=== PATIENT | male | born 1985 | race Caucasian/White ===

== ENCOUNTER 2017-09-04 17:53 | Emergency (ER) | payer OTHER ==
[2017-09-04] MEDS ORDERED: Sodium Chloride 0.9% 1,000 ML IV ONE ×2 (18:24→20:04)
[2017-09-04] MEDS ORDERED: Ondansetron 4 MG/2 ML SDV IVPUSH ONE (18:24)
[2017-09-04] MEDS ORDERED: LORazepam 2 MG/ML MDV IVPUSH ONE (18:24)
[2017-09-04] MEDS ORDERED: Morphine 2 MG/ML Syringe IVPUSH ONE (18:24)
--- NOTE | 2017-09-04 18:52 | EDM.PDOC ---
ED HPI GENERAL MEDICAL PROBLEM - General Chief Complaint: Abdominal Pain Stated Complaint: abdominal pain Time Seen by Provider: 09/04/17 18:00 Source of Information: Reports: Patient History Limitations: Reports: No Limitations - History of Present Illness INITIAL COMMENTS - FREE TEXT/NARRATIVE: History of present illness: 32-year-old male comes in with complaints of flank pain right greater than left indicates that he thinks he has another stone and has history of having kidney stones and states this feels the same Review of systems: As per history of present illness and below otherwise all systems reviewed and negative. Past medical history: As per history of present illness and as reviewed below otherwise noncontributory. Surgical history: As per history of present illness and as reviewed below otherwise noncontributory. Social history: No reported history of drug or alcohol abuse. Family history: As per history of present illness and as reviewed below otherwise noncontributory. Physical exam: HEENT: Atraumatic, normocephalic, pupils reactive, negative for conjunctival pallor or scleral icterus, mucous membranes moist, throat clear, neck supple, nontender, trachea midline. Lungs: Clear to auscultation, breath sounds equal bilaterally, chest nontender. Heart: S1S2, regular, negative for clicks, rubs, or JVD. Abdomen: Soft, nondistended, nontender. Negative for masses or hepatosplenomegaly. Bilateral flank tenderness worse with percussion. Pelvis: Stable nontender. Genitourinary: Deferred. Rectal: Deferred. Extremities: Atraumatic, negative for cords or calf pain. Neurovascular unremarkable. Neuro: Awake, alert, oriented. Cranial nerves II through XII unremarkable. Cerebellum unremarkable. Motor and sensory unremarkable throughout. Exam nonfocal. Diagnostics: [CT without contrast] Therapeutics: [1 L IV fluid, Ativan, Toradol, morphine] Impression: [#1 kidney stone] Plan: [Follow-up with urology] Definitive disposition and diagnosis as appropriate pending reevaluation and review of above. Left Back Pain Score (Numeric/FACES): 10 - Related Data Allergies Allergy/AdvReac Type Severity Reaction Status Date / Time No Known Allergies Allergy Verified 09/04/17 18:11 Home Meds: Home Meds Tamsulosin [Flomax] 0.4 mg PO PCBREAKFAST #7 cap.er 10/27/17 [Rx] Past Medical History HEENT History: Reports: None Cardiovascular History: Reports: None Respiratory History: Reports: None Gastrointestinal History: Reports: None Genitourinary History: Reports: Renal Calculus Musculoskeletal History: Reports: None Neurological History: Reports: None Psychiatric History: Reports: None Endocrine/Metabolic History: Reports: None Hematologic History: Reports: None Immunologic History: Reports: None Oncologic (Cancer) History: Reports: None Dermatologic History: Reports: None - Infectious Disease History Infectious Disease History: Reports: Chicken Pox - Past Surgical History Head Surgeries/Procedures: Reports: None HEENT Surgical History: Reports: None Cardiovascular Surgical History: Reports: None Respiratory Surgical History: Reports: None GI Surgical History: Reports: Hernia, Inguinal Male Surgical History: Reports: None Endocrine Surgical History: Reports: None Neurological Surgical History: Reports: None Musculoskeletal Surgical History: Reports: None Dermatological Surgical History: Reports: None Social & Family History - Family History Family Medical History: Noncontributory - Tobacco Use Smoking Status *Q: Never Smoker Second Hand Smoke Exposure: No - Caffeine Use Caffeine Use: Reports: Soda - Alcohol Use Days Per Week of Alcohol Use: 2 Number of Drinks Per Day: 3 Total Drinks Per Week: 6 - Recreational Drug Use Recreational Drug Use: No Drug Use in Last 12 Months: No ED ROS GENERAL - Review of Systems Review Of Systems: See Below (History of present illness) ED EXAM, GENERAL - Physical Exam Exam: See Below (See history of present illness) Course - Vital Signs Last Recorded V/S: Last Vital Signs Temp 36.2 C 09/04/17 18:12 Pulse 70 09/04/17 19:15 Resp 16 09/04/17 19:15 BP 122/83 09/04/17 19:15 Pulse Ox 100 09/04/17 19:15 - Orders/Labs/Meds Orders: Active Orders 24 hr Category Date Time Status Abdomen Pelvis wo Cont [CT] Stat Exams 09/04/17 18:25 Taken Sodium Chloride 0.9% [Normal Saline] 1,000 ml Med 09/04/17 20:04 Ordered IV STAT Medication Orders Sodium Chloride (Normal Saline) 1,000 mls @ 999 mls/hr IV STAT ONE Stop: 09/04/17 21:04 Last Admin: 09/04/17 20:17 Dose: 999 mls/hr Labs: Laboratory Tests 09/04/17 Range/Units 19:04 Urine Color YELLOW Urine Appearance CLOUDY Urine pH 8.0 (5.0-8.0) Ur Specific [place] 1.015 (1.001-1.035) Urine Protein NEGATIVE (NEGATIVE) mg/dL Urine Glucose (UA) NEGATIVE (NEGATIVE) mg/dL Urine Ketones NEGATIVE (NEGATIVE) mg/dL Urine Occult Blood LARGE H (NEGATIVE) Urine Nitrite NEGATIVE (NEGATIVE) Urine Bilirubin NEGATIVE (NEGATIVE) Urine Urobilinogen 0.2 (<2.0) EU/dL Ur Leukocyte Esterase NEGATIVE (NEGATIVE) Urine RBC 40-50 (0-2/HPF) Urine WBC 0-3 (0-5/HPF) Ur Epithelial Cells RARE (NONE-FEW) Amorphous Sediment MANY (NEGATIVE) Urine Bacteria FEW (NEGATIVE) Meds: Medications Generic Name Dose Route Start Last Admin Trade Name Freq PRN Reason Stop Dose Admin Sodium Chloride 1,000 mls @ 999 mls/hr 09/04/17 20:04 09/04/17 20:17 Normal Saline IV 09/04/17 21:04 999 mls/hr STAT ONE Administration Discontinued Medications Generic Name Dose Route Start Last Admin Trade Name Mjq PRN Reason Stop Dose Admin Hydromorphone HCl 1 mg 09/04/17 20:02 09/04/17 20:11 Dilaudid IVPUSH 09/04/17 20:03 1 mg ONETIME ONE Administration Sodium Chloride 1,000 mls @ 999 mls/hr 09/04/17 18:24 09/04/17 18:30 Normal Saline IV 09/04/17 19:24 999 mls/hr STAT ONE Administration Ketorolac Tromethamine 30 mg 09/04/17 20:02 09/04/17 20:11 Toradol IVPUSH 09/04/17 20:03 30 mg ONETIME ONE Administration Lorazepam 2 mg 09/04/17 18:24 09/04/17 18:31 Ativan IVPUSH 09/04/17 18:25 2 mg ONETIME ONE Administration Morphine Sulfate 2 mg 09/04/17 18:24 09/04/17 18:30 Morphine IVPUSH 09/04/17 18:25 2 mg ONETIME ONE Administration Ondansetron HCl 4 mg 09/04/17 18:24 09/04/17 18:30 Zofran IVPUSH 09/04/17 18:25 4 mg ONETIME ONE Administration Tamsulosin HCl 0.4 mg 09/04/17 20:04 09/04/17 20:11 Flomax PO 09/04/17 20:05 0.4 mg ONETIME ONE Administration Departure - Departure Time of Disposition: 20:35 Disposition: Home, Self-Care 01 Condition: Good Clinical Impression: Renal stone - Discharge Information Instructions: Pain Medicine Instructions, [id number] Forms: ED Department Discharge Additional Instructions: The following information is given to patients seen in the emergency department who are being discharged to home. This information is to outline your options for follow-up care. We provide all patients seen in our emergency department with a follow-up referral. The need for follow-up, as well as the timing and circumstances, are variable depending upon the specifics of your emergency department visit. If you don't have a primary care physician on staff, we will provide you with a referral. We always advise you to contact your personal physician following an emergency department visit to inform them of the circumstance of the visit and for follow-up with them and/or the need for any referrals to a consulting specialist. The emergency department will also refer you to a specialist when appropriate. This referral assures that you have the opportunity for follow-up care with a specialist. All of these measure are taken in an effort to provide you with optimal care, which includes your follow-up. Under all circumstances we always encourage you to contact your private physician who remains a resource for coordinating your care. When calling for follow-up care, please make the office aware that this follow-up is from your recent emergency room visit. If for any reason you are refused follow-up, please contact the [facility] Emergency Department at and asked to speak to the emergency department charge nurse. Take medication as directed Follow-up with urology as directed Return to ED as needed as discussed [facility] Specialty Care - Urology [address] [place] [id number] - My Orders Last 24 Hours: My Active Orders 09/04/17 18:25 Abdomen Pelvis wo Cont [CT] Stat 09/04/17 20:04 Sodium Chloride 0.9% [Normal Saline] 1,000 ml IV STAT - Assessment/Plan Last 24 Hours: My Active Orders 09/04/17 18:25 Abdomen Pelvis wo Cont [CT] Stat 09/04/17 20:04 Sodium Chloride 0.9% [Normal Saline] 1,000 ml IV STAT
[2017-09-04] MEDS ORDERED: HYDROmorphone 2 MG/ML Syringe IVPUSH ONE (20:02)
[2017-09-04] MEDS ORDERED: Ketorolac 30 MG/ML SDV IVPUSH ONE (20:02)
[2017-09-04] MEDS ORDERED: Tamsulosin 0.4 MG Cap.ER PO ONE (20:04)
[2017-09-04 22:48] VITALS: BP 108/61
--- NOTE | 2017-09-07 11:35 | CT ---
EXAM DATE: 09/04/17 PATIENT'S AGE: 32 Patient: JACK CURRY Facility: [place], [place] Site . Site : 1985 Study: CT Abdomen/Pelvis [id number]/27/2017 7:16:08 PM Ordering Physician: Doctor Marinelli Final Report: INDICATION: RIGHT FLANK PAIN, H/O STONES TECHNIQUE: CT abdomen and pelvis without contrast. COMPARISON: November 13, 2016 FINDINGS: Lower chest: Unremarkable. Liver: Unremarkable. Spleen: Unremarkable. Pancreas: Unremarkable. Gallbladder and bile ducts: Unremarkable. Kidneys: Duplication of the right renal collecting system. 5 mm calculus within the right ureterovesicular junction with associated right-sided hydroureter/ hydronephrosis of the lower pole moiety. Additional bilateral nonobstructive intrarenal calculi. . Adrenal glands: Unremarkable. GI tract: Unremarkable. Appendix is normal. Vascular structures: Unremarkable. Lymph nodes: Unremarkable. Miscellaneous: Small fat containing umbilical hernia. No free air or significant free fluid. Pelvic Organs: The prostate is prominent in size with associated prostatic calcifications. Bones: Unremarkable for age. IMPRESSION: 5 mm calculus within the right ureterovesicular junction with associated right- sided hydroureter/ hydronephrosis of the lower pole moiety. Additional bilateral nonobstructive intrarenal calculi. Dictated by Praveen Roblero MD @ 09/04/2017 7:55:29 PM Dictated by: Praveen Roblero MD @ 09/04/2017 19:55:43 (Electronic Signature) Report Signed by Proxy. MORGAN STANLEY CHILDREN'S HOSPITALJanay
== END 2017-09-04 21:40 | disposition home or self-care (01) ==
LOC: MW.ED 17:53
DX: N20.0 Calculus of kidney (principal)
CPT/HCPCS: 74176; 81001; 96361; 96374; 96375; 99284; A9270; J1170; J1885; J2060; J2270; J2405; J7040

== ENCOUNTER 2019-11-22 10:03 | Emergency (ER) | payer OTHER ==
[2019-11-22] MEDS ORDERED: Morphine 4 MG/ML Syringe IVPUSH ONE (11:01)
[2019-11-22] MEDS ORDERED: Ondansetron 4 MG/2 ML SDV IVPUSH ONE (11:01)
[2019-11-22] MEDS ORDERED: Sodium Chloride 0.9% 1,000 ML IV ONE (11:01)
--- NOTE | 2019-11-22 11:09 | EDM.PDOC ---
ED HPI GENERAL MEDICAL PROBLEM - General Chief Complaint: Gastrointestinal Problem Stated Complaint: VOMITING Time Seen by Provider: 11/22/19 11:04 Source of Information: Reports: Patient History Limitations: Reports: No Limitations - History of Present Illness INITIAL COMMENTS - FREE TEXT/NARRATIVE: This 34 year old male is admitted to the ED with a chief complaint of right flank pain with pain into the right lower abdomen. He states that the pain started around 7:00AM and comes in waves. He has a history of kidney stones and states that this feels just like it. He has had 4 stones in the past. He complains of nausea and vomiting since the start of his pain. He denies any urinary symptoms. He denies any other problems. Right Flank Pain Score (Numeric/FACES): 7 - Related Data Allergies Allergy/AdvReac Type Severity Reaction Status Date / Time No Known Allergies Allergy Verified 11/22/19 10:22 Home Meds: Home Meds Tamsulosin HCl [Flomax] 0.4 mg PO DAILY PRN 10 Days #10 cap.er.24h 11/22/19 [Rx] oxyCODONE HCl/Acetaminophen [Percocet 7.5-325 mg Tablet] 1 each PO Q6HR 3 Days # 12 tablet 11/22/19 [Rx] Past Medical History HEENT History: Reports: None Cardiovascular History: Reports: None Respiratory History: Reports: None Gastrointestinal History: Reports: None Genitourinary History: Reports: Renal Calculus Musculoskeletal History: Reports: None Neurological History: Reports: Seizure, Other (See Below) Other Neuro History: Seizures 15 years ago. idiopathic. Psychiatric History: Reports: None Endocrine/Metabolic History: Reports: None Hematologic History: Reports: None Immunologic History: Reports: None Oncologic (Cancer) History: Reports: None Dermatologic History: Reports: None - Infectious Disease History Infectious Disease History: Reports: Chicken Pox - Past Surgical History Head Surgeries/Procedures: Reports: None HEENT Surgical History: Reports: None Cardiovascular Surgical History: Reports: None Respiratory Surgical History: Reports: None GI Surgical History: Reports: Appendectomy, Hernia, Inguinal Male Surgical History: Reports: None Endocrine Surgical History: Reports: None Neurological Surgical History: Reports: None Musculoskeletal Surgical History: Reports: None Dermatological Surgical History: Reports: None Social & Family History - Family History Family Medical History: Noncontributory - Tobacco Use Smoking Status *Q: Current Some Day Smoker Years of Tobacco use: 5 Packs/Tins Daily: 1 - Caffeine Use Caffeine Use: Reports: None - Recreational Drug Use Recreational Drug Use: No ED ROS GENERAL - Review of Systems Review Of Systems: See Below Constitutional: Reports: No Symptoms HEENT: Reports: No Symptoms Respiratory: Reports: No Symptoms Cardiovascular: Reports: No Symptoms Endocrine: Reports: No Symptoms GI/Abdominal: Reports: Abdominal Pain : Reports: Flank Pain (right flank) Musculoskeletal: Reports: No Symptoms Skin: Reports: No Symptoms Neurological: Reports: No Symptoms ED EXAM, RENAL/ - Physical Exam Exam: See Below Exam Limited By: No Limitations General Appearance: Alert, Moderate Distress (complaining of right flank pain) Eye Exam: Bilateral Eye: EOMI, Normal Inspection, PERRL Ears: Normal External Exam, Normal Canal, Hearing Grossly Normal, Normal TMs Nose: Normal Inspection, Normal Mucosa, No Blood Throat/Mouth: Normal Inspection, Normal Lips, Normal Teeth, Normal Gums, Normal Oropharynx, Normal Voice, No Airway Compromise Head: Atraumatic, Normocephalic Neck: Normal Inspection, Supple, Non-Tender, Full Range of Motion Respiratory/Chest: No Respiratory Distress, Lungs Clear, Normal Breath Sounds, No Accessory Muscle Use, Chest Non-Tender Cardiovascular: Normal Peripheral Pulses, Regular Rate, Rhythm, No Edema, No Gallop, No JVD, No Murmur, No Rub GI/Abdominal: Normal Bowel Sounds, Soft, No Distention, No Abnormal Bruit, Other (tenderness is noted over the right flank with pain into the right mid to lower abdomen.) (Male) Exam: No Hernia, Normal Inspection Rectal (Males) Exam: Deferred Back Exam: Normal Inspection, CVA Tenderness (R) Extremities: Normal Inspection, Normal Range of Motion, Non-Tender, Normal Capillary Refill, No Pedal Edema Neurological: Alert, Oriented, CN II-XII Intact, Normal Cognition, Normal Gait, Normal Reflexes, No Motor/Sensory Deficits Psychiatric: Normal Affect, Normal Mood Skin Exam: Warm, Dry, Intact, Normal Color, No Rash Lymphatic: No Adenopathy Course - Vital Signs Text/Narrative:: I talked with Dr. Middleton the urologist at 2:11PM. She would like to have the patient call her office to make an appointment to see her in follow up. She recommends Flomax and Pain medications. I agree with the discharge plan and so does the patient. Last Recorded V/S: Last Vital Signs Temp 97.6 F 11/22/19 10:19 Pulse 59 L 11/22/19 12:27 Resp 18 11/22/19 12:27 BP 133/86 11/22/19 12:27 Pulse Ox 98 11/22/19 12:27 - Orders/Labs/Meds Labs: Laboratory Tests 11/22/19 11/22/19 11/22/19 Range/Units 10:30 11:07 11:07 WBC 14.28 H (4.0-11.0) K/uL RBC 5.10 (4.50-5.90) M/uL Hgb 15.9 (13.0-17.0) g/dL Hct 44.1 (38.0-50.0) % MCV 86.5 (80.0-98.0) fL MCH 31.2 (27.0-32.0) pg MCHC 36.1 (31.0-37.0) g/dL RDW Std Deviation 40.9 (28.0-62.0) fl RDW Coeff of Tobias 13 (11.0-15.0) % Plt Count 235 (150-400) K/uL MPV 9.50 (7.40-12.00) fL Neut % (Auto) 86.4 H (48.0-80.0) % Lymph % (Auto) 8.0 L (16.0-40.0) % Bailey % (Auto) 5.0 (0.0-15.0) % Eos % (Auto) 0.4 (0.0-7.0) % Baso % (Auto) 0.2 (0.0-1.5) % Neut # (Auto) 12.4 H (1.4-5.7) K/uL Lymph # (Auto) 1.1 (0.6-2.4) K/uL Bailey # (Auto) 0.7 (0.0-0.8) K/uL Eos # (Auto) 0.1 (0.0-0.7) K/uL Baso # (Auto) 0.0 (0.0-0.1) K/uL Sodium 140 (136-148) mmol/L Potassium 3.9 (3.5-5.1) mmol/L Chloride 100 (98-107) mmol/L Carbon Dioxide 27.7 (21.0-32.0) mmol/L BUN 15 (7.0-18.0) mg/dL Creatinine 1.3 (0.8-1.3) mg/dL Est Cr Clr Drug Dosing 87.05 mL/min Estimated GFR (MDRD) > 60.0 ml/min Glucose 129 H (74-106) mg/dL Calcium 9.3 (8.5-10.1) mg/dL Total Bilirubin 0.4 (0.2-1.0) mg/dL AST 23 (15-37) IU/L ALT 47 (14-63) IU/L Alkaline Phosphatase 79 (46-116) U/L Total Protein 7.8 (6.4-8.2) g/dL Albumin 4.1 (3.4-5.0) g/dL Globulin 3.7 (2.6-4.0) g/dL Albumin/Globulin Ratio 1.1 (0.9-1.6) Urine Color YELLOW Urine Appearance CLOUDY Urine pH 7.0 (5.0-8.0) Ur Specific [place] 1.015 (1.001-1.035) Urine Protein NEGATIVE (NEGATIVE) mg/dL Urine Glucose (UA) NEGATIVE (NEGATIVE) mg/dL Urine Ketones NEGATIVE (NEGATIVE) mg/dL Urine Occult Blood LARGE H (NEGATIVE) Urine Nitrite NEGATIVE (NEGATIVE) Urine Bilirubin NEGATIVE (NEGATIVE) Urine Urobilinogen 0.2 (<2.0) EU/dL Ur Leukocyte Esterase NEGATIVE (NEGATIVE) Urine RBC TOO NUMEROUS TO CT (0-2/HPF) Urine WBC 1-3 (0-5/HPF) Ur Epithelial Cells FEW (NONE-FEW) Amorphous Sediment HEAVY (NEGATIVE) Urine Bacteria 1+ H (NEGATIVE) Urine Mucus LIGHT (NONE-MOD) Meds: Medications Discontinued Medications Generic Name Dose Route Start Last Admin Trade Name Freq PRN Reason Stop Dose Admin Hydromorphone HCl 1 mg 11/22/19 12:20 11/22/19 12:27 Dilaudid IVPUSH 11/22/19 12:21 1 mg ONETIME ONE Administration Sodium Chloride 1,000 mls @ 999 mls/hr 11/22/19 11:01 11/22/19 11:10 Normal Saline IV 11/22/19 12:01 999 mls/hr .Bolus ONE Administration Morphine Sulfate 4 mg 11/22/19 11:01 11/22/19 11:09 Morphine IVPUSH 11/22/19 11:02 4 mg ONETIME ONE Administration Ondansetron HCl 4 mg 11/22/19 11:11/22/19 11:09 Zofran IVPUSH 11/22/19 11:02 4 mg ONETIME ONE Administration Departure - Departure Time of Disposition: 14:30 Disposition: Home, Self-Care 01 Condition: Good Clinical Impression: Obstruction of right ureteropelvic junction due to stone - Discharge Information *PRESCRIPTION DRUG MONITORING PROGRAM REVIEWED*: Yes *COPY OF PRESCRIPTION DRUG MONITORING REPORT IN PATIENT LIA: Yes Instructions: Kidney Stones, [id number], Pain Medicine Instructions, Easy-to- Read Referrals: PCP,None [Primary Care Provider] - Forms: ED Department Discharge Additional Instructions: Drink plenty of clear liquids for the next two days. Take all medications as directed. Make your appoint with Dr. Middleton as noted below. Return to the ED if your condition gets worse. Please call to make an appointment with Dr. Middleton this week in [place]. Please arrive 15 minutes prior to the time of your appointment for registration purposes. Milagros Middleton, [facility] [address] [place] [address] The following information is given to patients seen in the emergency department who are being discharged to home. This information is to outline your options for follow-up care. We provide all patients seen in our emergency department with a follow-up referral. The need for follow-up, as well as the timing and circumstances, are variable depending upon the specifics of your emergency department visit. If you don't have a primary care physician on staff, we will provide you with a referral. We always advise you to contact your personal physician following an emergency department visit to inform them of the circumstance of the visit and for follow-up with them and/or the need for any referrals to a consulting specialist. The emergency department will also refer you to a specialist when appropriate. This referral assures that you have the opportunity for follow-up care with a specialist. All of these measure are taken in an effort to provide you with optimal care, which includes your follow-up. Under all circumstances we always encourage you to contact your private physician who remains a resource for coordinating your care. When calling for follow-up care, please make the office aware that this follow-up is from your recent emergency room visit. If for any reason you are refused follow-up, please contact the [facility] Emergency Department at and asked to speak to the emergency department charge nurse. Sepsis Event Note - Evaluation Sepsis Screening Result: No Definite Risk - Focused Exam Vital Signs: Vital Signs Temp Pulse Resp BP Pulse Ox 11/22/19 12:27 59 L 18 133/86 98 11/22/19 10:19 97.6 F 64 19 138/95 H 99 Date Exam was Performed: 11/22/19 Time Exam was Performed: 14:27
[2019-11-22 11:39] LABS: BLOOD UREA NITROGEN,BUN 15 mg/dL (7.0-18.0); CARBON DIOXIDE,CO2 27.7 mmol/L (21.0-32.0); CHLORIDE,CL 100 mmol/L (98-107); GLUCOSE RANDOM 129 mg/dL (74-106); POTASSIUM,K 3.9 mmol/L (3.5-5.1); SODIUM,NA 140 mmol/L (136-148)
[2019-11-22] MEDS ORDERED: HYDROmorphone 1 MG/ML Syringe IVPUSH ONE (12:20)
--- NOTE | 2019-11-22 13:02 | CT ---
CT abdomen and pelvis Technique: Multiple axial sections were obtained from above the dome of the diaphragm inferiorly through the pubic symphysis. Intravenous and oral contrast not utilized. Study has been performed as a ureteral stone protocol. Comparison: Previous CT abdomen and pelvis study of 09/04/17 is available. Findings: 2 nonobstructing calculi are seen within the left kidney. Moderate hydronephrosis is noted of the right kidney and right ureter. These findings are caused by an obstructing ureteral stone measuring approximately 6.6 mm. This stone is within the mid to distal ureter which is approximately 8-10 cm proximal to the UVJ. Distal right ureter shows no dilatation. No other ureteral calculi are seen. Other findings: Visualized lung bases shows mild interstitial change within the left base which is felt compatible with slight fibrosis. Noncontrast appearance of the liver shows no discrete abnormality. Spleen appears within normal limits. Adrenal glands show no nodule. Pancreas shows no discrete abnormality. Gallbladder contains no calcified gallstones. Aorta shows no aneurysm. Small hiatal hernia is noted. Esophageal wall thickening seen distally. Esophageal findings most likely due to chronic reflux esophagitis. No mesenteric abnormalities are seen. No retroperitoneal adenopathy is noted. No pelvic mass or adenopathy is seen. No free fluid or inflammatory change is appreciated within the abdomen or pelvis. Appendix not definitely visualized. Bone window settings were reviewed which appear within normal limits for the patient's age. Impression: 1. 6.6 mm obstructing stone within the mid to distal right ureter located approximately 8-10 cm proximal to the right UVJ. 2. 2 nonobstructing calculi within the left kidney. 3. Esophageal wall thickening and small hiatal hernia. Esophageal findings most likely represent change from chronic reflux esophagitis. 4. Other findings as described above believed to be incidental. Diagnostic code #3 This report was dictated in [place] Standard Time
[2019-11-22] MEDS ORDERED: Tamsulosin 0.4 MG Cap.ER PO ONE (14:34)
[2019-11-22 14:52] VITALS: BP 121/69; PULSE 55
== END 2019-11-22 14:50 | disposition home or self-care (01) ==
LOC: MW.ED 10:03
DX: N20.2 Calculus of kidney with calculus of ureter (principal); F17.210 Nicotine dependence, cigarettes, uncomplicated
CPT/HCPCS: 36415; 74176; 80053; 81001; 85025; 96361; 96374; 96375; 99284; A9270; J1170; J2270; J2405; J7030